=== PATIENT | female | born 1980 | race Two or more races ===

== ENCOUNTER 2024-08-31 10:15 | Inpatient (IN) | payer OTHER ==
[~2024-08-31] VITALS: Ht 167.6 cm; Wt 66.7 kg
[2024-08-31 11:44] VITALS: BP 111/77
[2024-08-31 14:54] LABS: RH POSITIVE
[2024-09-05] MEDS ORDERED: POVIDONE-IODINE 118 ML BOTT TOP ONE (13:00)
[2024-09-05] MEDS ORDERED: CEFAZOLIN SODIUM 1,000 MG VIAL IV ONE (13:15)
[2024-09-05] MEDS ORDERED: HEMOSTATIC MATRIX 1 KIT KIT TOP ONE (13:45)
[2024-09-05] MEDS ORDERED: MORPHINE SULFATE 4 MG,MORPHINE SULFATE 2 MG IV PRN (14:15)
[2024-09-05] MEDS ORDERED: RINGERS SOLUTION,LACTATED 1,000 ML IV SCH (14:15)
[2024-09-05] MEDS ORDERED: ONDANSETRON HCL 2 MG/ML VIAL IV PRN (14:15)
[2024-09-05] MEDS ORDERED: ONDANSETRON HCL 2 MG/ML VIAL IV ONE (14:40)
[2024-09-05] MEDS ORDERED: MORPHINE SULFATE 4 MG/ML VIAL IV ONE ×2 (14:40→15:10)
[2024-09-05 17:38] VITALS: BP 129/82
[2024-09-05] MEDS ORDERED: CEFAZOLIN SODIUM 1,000 MG VIAL IV SCH (18:00)
[2024-09-05 18:10] LABS: HEMATOCRIT 37.1 % (36.0-45.00); HEMOGLOBIN 12.6 g/dL (12.0-15.00); MEAN CORPUSCULAR HEMOGLOBIN 29.6 pg (27.00-32.0); PLATELET COUNT 185 K/uL (150-450); RED BLOOD COUNT 4.27 M/uL (4.00-6.00); RED CELL DISTRIBUTION WIDTH 13.3 % (11.5-14.5)
[2024-09-06 00:37] VITALS: BP 128/84
[2024-09-06] MEDS ORDERED: IBUprofen 800 MG TABLET PO PRN (08:00)
[2024-09-06] MEDS ORDERED: GABAPENTIN 300 MG CAPSULE PO PRN (08:00)
[2024-09-06 08:57] VITALS: BP 121/77
[2024-09-06] MEDS ORDERED: ENOXAPARIN SODIUM 40 MG/0.4 ML SYRINGE SUBCUTANEO SCH (09:00)
[2024-09-06 15:55] VITALS: BP 114/77
[2024-09-07] VITALS: BP 113/75
[2024-09-07] MEDS ORDERED: IBUPROFEN800 MG PO (06:30)
[2024-09-07] MEDS ORDERED: GABAPENTIN300 MG PO (06:30)
[2024-09-07 08:43] VITALS: BP 117/89
== END 2024-09-07 09:09 | disposition home or self-care (01) | DRG 743 ==
LOC: OB/GYN 09-05 07:24 → O/R 09-05 07:24 → OB/GYN 09-05 10:15
PROVIDERS: ADMIT Obstetrics & Gynecology Gynecology; ATTEND Obstetrics & Gynecology Gynecology
PROC: 0UT70ZZ Resection of Bilateral Fallopian Tubes, Open Approach (ICD-10-PCS; 2024-09-05)
PROC: 0UT90ZZ Resection of Uterus, Open Approach (ICD-10-PCS; principal; 2024-09-05 14:30)
DX: D25.1 Intramural leiomyoma of uterus (principal); N92.1 Excessive and frequent menstruation with irregular cycle; R10.2 Pelvic and perineal pain; N72 Inflammatory disease of cervix uteri; N80.03 Adenomyosis of the uterus